=== PATIENT | female | born 1945 | race Caucasian/White ===

== ENCOUNTER 2024-02-07 10:11 | Inpatient (IN) | payer MEDICARE, BC, SELFPAY ==
[2024-02-07] VITALS (14 sets, daily range): BP systolic 117–149; BP diastolic 59–86; PULSE 76–96; TEMP 36.7–36.9; O2SAT 95–100; BMI 36.6; BMI 39.8
--- NOTE | 2024-02-07 11:11 | XR_ITS ---
The [address] [address] Patient Name: SALVADOR CHERY MRN: [id number] date: 1945 Sex: F Assigned Patient Location: ER Current Patient Location: ER Accession/Order Number: [id number] Exam Date: 02/07/2024 12:30 Report Date: 02/07/2024 12:48 At the request of: STEVEN CRANE Procedure: XR chest 1V EXAMINATION: XR chest 1V HISTORY: leg swelling COMPARISON: No relevant comparison available. FINDINGS: LUNGS: No significant pulmonary parenchymal abnormalities. VASCULATURE: No increased pulmonary vasculature. PLEURA: No pneumothorax, effusion, or pleural thickening. CARDIAC: No cardiomegaly or cardiac silhouette abnormality. MEDIASTINUM: No visible mass or adenopathy. BONES: No appreciable fracture. Degenerative changes of the shoulders bilaterally. OTHER: Negative. XR/XR chest 1V IMPRESSION: 1. No acute cardiopulmonary process. Electronically authenticated by: MELECIO ANDERSON Date: 02/07/2024 12:48
--- NOTE | 2024-02-07 11:14 | ECG_ITS ---
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
--- NOTE | 2024-02-07 11:15 | ED_ITS ---
HPI HPI - General Adult General Chief complaint: Weakness Stated complaint: BILATERAL LEG PAIN Time Seen by Provider: 02/07/24 10:43 Source: patient Mode of arrival: ambulance Limitations: no limitations History of Present Illness HPI narrative: Patient is a 78-year-old female who is presenting to the ER today with chief complaint of leg swelling. Patient came in by EMS. Patient lives at home with family. Patient PCP is Dr. Marmolejo. Patient stopped taking all of her medications approximately 6 months ago. Patient states for the past week she has been having more swelling to bilateral lower extremities and redness. Patient states she has not seen Dr. Marmolejo in over 1 to 2 years. Patient stated that in 6 months ago, she stopped taking her home medications and stated that she was going through natural homeopathic remedies at home. Patient is diabetic. Patient states that she had her sciatic nerve cuts and a right hip surgery. Patient states for the last several days she has been having more difficulty using her left leg secondary to pain and swelling. No strokelike signs or symptoms. She has no headache. No slurred speech. No chest pain or shortness of breath. No abdominal pain. Patient is placing some type of cornstarch underneath her bilateral breasts to help with redness and possible yeast infection. Patient has chronic redness and swelling to bilateral lower extremities. Patient has no other concerns at this time. No bowel or bladder changes. Patient has history of diabetes and gout. All systems are negative except as noted/marked. All systems reviewed and otherwise negative. Nurses note and vital signs reviewed and patient is not hypoxic. General: The patient appears well and in no apparent distress. Patient is resting comfortably on cart. Patient is not toxic, lethargic, or listless Skin: Warm, dry, no pallor noted. There is no petechiae, purpura. Patient has scaling of her lower extremities, diffuse redness to bilateral lower extremities, right greater than left. Patient also has redness to the dorsal aspect of the right foot. Patient does not have circumferential redness to the bilateral lower extremities. Patient has dermatitis and some scaling to bilateral lower extremities. Patient has multiple open sores to the bilateral lower extremities, bilateral lower extremity cellulitis, right greater than left. Patient has 2-3+ pitting edema to bilateral extremities. Head: Normocephalic, atraumatic Eye: Normal conjunctiva, no drainage, EOMI. PERRL Ears, Nose, Mouth, and Throat: oral mucosa is moist. Nares patent. Mouth without vesicles. Cardiovascular: Regular Rate and Rhythm, no murmur, gallop, rub Respiratory: Patient is in no distress, no accessory muscle use, lungs are clear to auscultation, no wheezing, rales or rhonchi Back: non-tender, no CVA tenderness bilaterally to percussion. No CT LS midline pain no tenderness to palpation to bilateral frontal and maxillary sinus.. GI: Obese, no tenderness to palpation, no masses appreciated. No rebound, guarding, or rigidity noted. No distention Musculoskeletal: Patient has full range of motion of all of the extremities, no motor, sensory, or focal neurological deficits Neurological: A&O x4, normal speech Psychiatric: Cooperative Related Data Allergies Allergy/AdvReac Type Severity Reaction Status Date / Time codeine AdvReac Mild Hives Verified 02/07/24 10:18 gabapentin AdvReac Mild confusion Verified 02/07/24 10:18 iodine AdvReac Mild Hives Verified 02/07/24 10:18 pregabalin AdvReac Mild confusion Verified 02/07/24 10:18 Opioid HPI Opioid Management Most Recent Opioid Data: Last Pain Scale 8 02/07/24 10:26 02/07/24 PFSH PFS Medical History (Updated 02/07/24 @ 14:23 by Cesar Vail MD) Hypertension ?I10 - Essential (primary) hypertension (ICD-10) Gout ?M10.9 - Gout, unspecified (ICD-10) Diabetes ?E11.9 - Type 2 diabetes mellitus without complications (ICD-10) Surgical History (Updated 02/07/24 @ 11:31 by Dawna Hansen RN) S/P hip replacement ?Z96.649 - Presence of unspecified artificial hip joint (ICD-10) Social History Little interest or pleasure in doing things: not at all Feeling down, depressed, or hopeless: not at all Exam Constitutional Vital Signs, click to edit/add: Last Vital Signs Temp 98.5 F 02/07/24 10:14 Pulse 78 02/07/24 10:30 Resp 19 02/07/24 10:40 BP 123/59 02/07/24 11:00 Pulse Ox 100 02/07/24 11:30 O2 Del Method Room Air 02/07/24 10:26 Course Vital Signs Vital signs: Vital Signs Temperature 98.5 F 02/07/24 10:14 Pulse Rate 76 02/07/24 10:14 Respiratory Rate 18 02/07/24 10:14 Blood Pressure 149/86 H 02/07/24 10:14 Pulse Oximetry 100 02/07/24 10:14 Oxygen Delivery Method Room Air 02/07/24 10:14 Temperature 98.5 F 02/07/24 10:14 Pulse Rate 78 02/07/24 10:30 Respiratory Rate 19 02/07/24 10:40 Blood Pressure 123/59 02/07/24 11:00 Pulse Oximetry 100 02/07/24 11:30 Oxygen Delivery Method Room Air 02/07/24 10:26 Medical Decision Making MDM Narrative Medical decision making narrative: Patient was started on Zosyn for lower extremities. Patient also had a wound care consult. Wound care came to the ER and placed Xeroform to bilateral lower extremities. Patient has bilateral lower extremity edema, cellulitis. Patient is having pain in the lower extremity. Patient has equal bilateral lower extremity swelling, no unilateral swelling, no signs of acute DVT. Patient does not have elevated white blood cell count. Patient does have slight elevation of BUN and creatinine, EKG and troponin are negative. Wound care team placed Xeroform to bilateral extremities and also pillowcases in between her legs and adipose folds to help with dry mechanism. Patient also has moisture irritation dermatitis to her lower buttocks, but no obvious stage I or stage II decubitus ulcers per wound care nurse. Patient also is recommending to use the nystatin powder to areas of fungal infection on the inpatient floor. Case was discussed with Dr. FERRARO, patient will be admitted for further evaluation, diuresis, IV antibiotics. Please see the wound care evaluation and consultation, that was very helpful. Lab Data Labs: Lab Results 02/07/24 02/07/24 Range/Units 10:58 11:32 WBC 9.6 (4.0-11.0) 10^3/uL RBC 3.90 L (4.20-5.40) 10^6/uL Hgb 11.6 L (12.0-16.0) g/dL Hct 36.6 (36.0-48.0) % MCV 93.8 (81.0-99.0) fL MCH 29.7 (26.7-34.0) pg MCHC 31.7 (29.9-35.2) g/dL RDW 12.6 (11.0-15.0) % Plt Count 325 (150-450) 10^3/uL MPV 11.0 (9.5-13.5) fL Neut % (Auto) 72.9 (43.0-75.0) % Lymph % (Auto) 15.6 L (20.5-60.0) % [place] % (Auto) 7.3 (1.7-12.0) % Eos % (Auto) 3.1 (0.9-7.0) % Baso % (Auto) 0.6 (0.2-2.0) % Neut # (Auto) 7.0 H (1.4-6.5) 10^3/uL Lymph # (Auto) 1.5 (1.2-3.8) 10^3/uL [place] # (Auto) 0.7 (0.3-0.8) 10^3/uL Eos # (Auto) 0.3 (0.0-0.7) 10^3/uL Baso # (Auto) 0.1 (0.0-0.1) 10^3/uL Abs Immat Gran (auto) 0.05 H (0.00-0.03) 10^3/uL Imm/Tot Granulo (auto) 0.5 (0.0-0.5) % PT 10.4 (9.0-11.6) sec INR 0.98 VBG pH 7.402 (7.330-7.430) VBG pCO2 40.9 (40.0-52.0) mmHg Sodium 144 (136-145) mmol/L Potassium 4.3 (3.5-5.1) mmol/L Chloride 107 (98-107) mmol/L Carbon Dioxide 25.2 (21.0-32.0) mmol/L Anion Gap 16.1 BUN 23.0 H (7.0-18.0) mg/dL Creatinine 1.36 H (0.55-1.02) mg/dL Est GFR ( Amer) 46 L (>=60 mL/min/1.73m^2) Est GFR (Non-Af Amer) 38 L (>=60 mL/min/1.73m^2) BUN/Creatinine Ratio 16.9 Glucose 141 H (74-106) mg/dL Lactate 1.0 (0.4-2.0) mmol/L Calcium 9.5 (8.5-10.1) mg/dL Magnesium 1.6 L (1.8-2.4) mg/dL Total Bilirubin 0.5 (0.2-1.0) mg/dL AST 16 (15-37) U/L ALT 15 (14-59) U/L Alkaline Phosphatase 108 (46-116) U/L NT-Pro-B Natriuret Pep 509.0 (<=1800.0) pg/mL Total Protein 6.8 (6.4-8.2) g/dL Albumin 3.0 L (3.4-5.0) g/dL Globulin 3.8 g/dL Albumin/Globulin Ratio 0.8 Urine Color Lt. yellow (YELLOW) Urine Clarity Clear (CLEAR) Urine pH 6.0 (5.0-9.0) Ur Specific [place] 1.020 (1.005-1.025) Urine Protein Trace (NEG/TRACE) mg/dL Urine Glucose (UA) Negative (NEGATIVE) mg/dL Urine Ketones Negative (NEGATIVE) mg/dL Urine Occult Blood Small A (NEGATIVE) Urine Nitrite Negative (NEGATIVE) Urine Bilirubin Negative (NEGATIVE) Urine Urobilinogen 0.2 (0.2-1.0) EU/dL Ur Leukocyte Esterase Moderate A (NEGATIVE) Urine RBC 2-5 A (0-2) #/HPF Urine WBC 5-10 A (NONE SEEN) #/HPF Ur Squamous Epith Cells Many A (NONE/RARE) #/LPF Urine Crystals None seen (None Seen) #/HPF Urine Bacteria Large A (NONE SEEN) #/HPF Urine Casts None seen (NONE SEEN) #/LPF Urine Mucus None seen (NONE SEEN) Ur Culture Indicated? Yes ECG Data Attestation: I personally reviewed and interpreted this ECG as follows: (EKG interpretation. Artifact noted. Baseline normal sinus rhythm at 77 beats a minute. QTc of 439. EKGs reading first-degree AV block with GA interval 214) Discharge Plan Discharge Chief Complaint: Weakness Clinical Impression: Bilateral edema of lower extremity, Cellulitis of right anterior lower leg, Medically noncompliant, Encounter for wound care Patient Disposition: Admitted As Inpatient Time of Disposition Decision: 14:23 Condition: Fair
[2024-02-07 11:23] LABS: Bilirubin Urine NEGATIVE (NEGATIVE); Blood Urine SMALL (NEGATIVE); Clarity Urine CLEAR (CLEAR); Color Urine LT. YELLOW (YELLOW); Glucose Urine UA NEGATIVE (NEGATIVE); Ketones Urine NEGATIVE (NEGATIVE); Leukocyte Esterase Urine MODERATE (NEGATIVE); Nitrite Urine NEGATIVE (NEGATIVE); Protein Urine TRACE mg/dL (NEG/TRACE); Urine Microscopic Indicated YES; Urobilinogen Urine 0.2 EU/dL (0.2-1.0)
--- NOTE | 2024-02-07 11:29 | CT_ITS ---
The [address] [address] Patient Name: SALVADOR CHERY MRN: [id number] date: 1945 Sex: F Assigned Patient Location: ER Current Patient Location: ER Accession/Order Number: [id number] Exam Date: 02/07/2024 12:30 Report Date: 02/07/2024 12:55 At the request of: STEVEN CRANE Procedure: CT head/brain wo con EXAM: CT head/brain wo con HISTORY: left leg weakness COMPARISON: None. TECHNIQUE: Multiple thin computed tomograms of the head were obtained, with sagittal and coronal reconstructions. Radiation reduction technique and algorithms were utilized during the study. FINDINGS: The ventricles are near the upper limits of normal in size, the lateral ventricles are symmetric and the third ventricles in the midline. The sylvian fissures and cortical sulci are borderline prominent in size. There is no evidence of an intracranial hemorrhage, mass lesion or apparent acute infarct. A few punctate dystrophic calcifications are seen in the basal ganglia bilaterally, which are not felt to be significant. No focal abnormality is readily identified in the deep white matter. Calcifications are seen in the falx. Frontal hyperostosis is noted. The cerebellum and visualized brainstem are intact. The visualized paranasal sinuses are clear. The middle ears are aerated. The soft tissues are seen in the external auditory canal on the right, presumably cerumen. The mastoid sinuses are underdeveloped and essentially clear. There is no evidence of an acute skull fracture. CT/CT head/brain wo con IMPRESSION: There is no evidence of an intracranial hemorrhage, mass lesion or apparent acute infarct. Early diffuse atrophy is noted. The visualized paranasal sinuses are clear. There is no apparent acute skull fracture. Electronically authenticated by: PAYTON CROW Date: 02/07/2024 12:55
[2024-02-07 11:40] LABS: Bacteria Urine LARGE #/HPF (NONE SEEN)
[2024-02-07 11:41] LABS: Mucus Urine NONE SEEN (NONE SEEN); Squamous Epithelial Cell Urine MANY #/LPF (NONE/RARE)
[2024-02-07 11:42] LABS: Cast Seen? NONE SEEN #/LPF (NONE SEEN); Crystals Seen? None Seen #/HPF (None Seen); Urine Culture Indicated YES
[2024-02-07 11:51] LABS: Basophils Absolute Auto 0.1 10^3/uL (0.0-0.1); Basophils Percent Auto 0.6 % (0.2-2.0); Eosinophils Absolute Auto 0.3 10^3/uL (0.0-0.7); Eosinophils Percent Auto 3.1 % (0.9-7.0); Hematocrit 36.6 % (36.0-48.0); Hemoglobin 11.6 g/dL (12.0-16.0); Immature Granulocytes Abs Auto 0.05 10^3/uL (0.00-0.03); Immature Granulocytes Pct Auto 0.5 % (0.0-0.5); Lymphocytes Absolute Auto 1.5 10^3/uL (1.2-3.8); Lymphocytes Percent Auto 15.6 % (20.5-60.0); Mean Corpuscular HGB Conc 31.7 g/dL (29.9-35.2); Mean Corpuscular Hemoglobin 29.7 pg (26.7-34.0); Mean Corpuscular Volume 93.8 fL (81.0-99.0); Monocytes Absolute Auto 0.7 10^3/uL (0.3-0.8); Monocytes Percent Auto 7.3 % (1.7-12.0); Neutrophils Percent Auto 72.9 % (43.0-75.0); Platelet Count 325 10^3/uL (150-450); Red Cell Distribution Width 12.6 % (11.0-15.0); White Blood Count 9.6 10^3/uL (4.0-11.0)
[2024-02-07 11:52] LABS: PCO2 VBG 40.9 mmHg (40.0-52.0); pH VBG 7.402 (7.330-7.430)
[2024-02-07 12:13] LABS: Alanine Aminotransferase 15 U/L (14-59); Albumin Globulin Ratio 0.8; Alkaline Phosphatase 108 U/L (46-116); Anion Gap 16.1; Aspartate Amino Transferase 16 U/L (15-37); BUN Creatinine Ratio 16.9; Bilirubin Total 0.5 mg/dL (0.2-1.0); Calcium 9.5 mg/dL (8.5-10.1); Carbon Dioxide 25.2 mmol/L (21.0-32.0); Chloride 107 mmol/L (98-107); Estimated GFR (African America 46 (>=60 mL/min/1.73m^2); Estimated GFR (Non-African Ame 38 (>=60 mL/min/1.73m^2); Globulin 3.8 g/dL; Glucose 141 mg/dL (74-106); Magnesium 1.6 mg/dL (1.8-2.4); Potassium 4.3 mmol/L (3.5-5.1); Sodium 144 mmol/L (136-145); Total Protein 6.8 g/dL (6.4-8.2)
[2024-02-07] MEDS: PIPERACILLIN SODIUM/TAZOBACTAM 3.375 GM in 0.9 % SODIUM CHLORIDE 50 ML IV ×2 (12:23→22:22)
[2024-02-07 12:32] LABS: INR 0.98; Prothrombin Time 10.4 sec (9.0-11.6)
--- NOTE | 2024-02-07 12:48 | W.PM.WC ---
Wound Consult Note Assessment and Plan (1) Cellulitis of right anterior lower leg: (2) Bilateral edema of lower extremity: Plan Consult: Bilateral lower extremities, bilateral groin breakdown, bilateral buttocks skin breakdown Called by ER staff per Dr. Vail's request to see patient for skin assessment. Patient states she does not have history of wounds but has noticed her legs swelling more recently and draining. She reports she does put an organic oil on her legs but she was unsure which type. Upon inspect patient has thick dry scaly skin with moisture underneath. She also has a large amount of hairs intertwined with the scaly skin deposits. Legs were scrubbed with soap and water and a cotton tipped applicator was used to assist with removing loose skin. Patient tolerated well. She has superficial open skin on her right anterior camargo to her dorsal foot and toes. Area covered with 1 layer of xeroform and secure with kerlix. Patient's heel is padded with 4x4 gauze as her heels are sore and boggy. They do lilia, however they are slow to lilia. Patient's left camargo is also superficially open and wrapped with 1 layer of xeroform and heel padded as well due to her red heel. Patient tolerated well. Upon inspection of patient's bilateral groin/abdominal folds, she has bleeding skin and moisture noted. Pillowcase were applied to her creases bilaterally. Upon inspection of her buttocks area, patient has noted moisture associated dermatitis and incontinence associated dermatitis as well as shearing/friction noted. Spoke with bedside nurse and Dr. Vail regarding recommendations: Xeroform daily to bilateral lower legs daily. Antifungal powder and pillowcases to bilateral abdominal/groin twice daily Barrier cream/triad to bilateral buttocks daily Please call [phone] for any questions or concerns. Luis Juarez RN, CWON
--- NOTE | 2024-02-07 17:25 | P.HP_ITS ---
HPI H&P: HPI History of Present Illness Chief complaint: BILATERAL LEG PAIN, LOWER EXTREMITY EDEMA, CELLULI Narrative: Approximately 6 months ago patient stopped taking all of her medications, patient is a diabetic, she presented to the emergency room with increasing swelling in her lower extremities and increasing pain. In ER found a bilateral lower extremity cellulitis. Wound consultation was completed. financial services rep consult also completed When I saw patient up in the medical surgical floor she is very talkative, not sure how accurate her history is, not seen a doctor in over 1 to 2 years, stopped all her medications 6 months ago, as noted above just having increasing pain and swelling in her lower extremities. Denies fever chills or chest pain or shortness of breath Opioid HPI Opioid Management Most Recent Pain and Opioid Data: Last Pain Scale 5 02/07/24 18:00 02/07/24 Last Pain Assessment 02/07/24 20:00 Last ORT Total Score 0 02/07/24 15:11 02/07/24 Last ORT Risk Category Low Risk 02/07/24 15:11 02/07/24 Review of Systems ROS Status of ROS 10 or more systems reviewed and unremark able except as noted in history and below [facility] Medical History (Updated 02/07/24 @ 14:23 by Cesar Vail MD) Hypertension ?I10 - Essential (primary) hypertension (ICD-10) Gout ?M10.9 - Gout, unspecified (ICD-10) Diabetes ?E11.9 - Type 2 diabetes mellitus without complications (ICD-10) Surgical History (Updated 02/07/24 @ 11:31 by Dawna Hansen RN) S/P hip replacement ?Z96.649 - Presence of unspecified artificial hip joint (ICD-10) Social History Highest level of school completed/degree received: high school graduate Little interest or pleasure in doing things: not at all Feeling down, depressed, or hopeless: not at all Meds Home Medications and Allergies Allergies Allergy/AdvReac Type Severity Reaction Status Date / Time codeine AdvReac Mild Hives Verified 02/07/24 10:18 gabapentin AdvReac Mild confusion Verified 02/07/24 10:18 iodine AdvReac Mild Hives Verified 02/07/24 10:18 pregabalin AdvReac Mild confusion Verified 02/07/24 10:18 Exam Constitutional Vital Signs, click to edit/add: Last Vital Signs Temp 98.3 F 02/07/24 15:11 Pulse 85 02/07/24 15:11 Resp 16 02/07/24 15:11 BP 144/69 H 02/07/24 15:11 Pulse Ox 99 02/07/24 15:11 O2 Del Method Room Air 02/07/24 15:11 Documenting provider has reviewed patient's vital signs: yes Common normals: no apparent distress Chest Common normals: inspection of chest normal and palpation of chest normal Respiratory Common normals: normal respiratory effort and no retractions Cardio Common normals: regular rate and regular rhythm GI Common normals: Normal to inspection, nondistended, normoactive bowel sounds present and soft to palpation Extremity Common normals: abnormal to inspection (3+ swelling of unique low ext, erythema bilateral lower ext, dressing in place) Results Labs Labs: Short CBC 02/07/24 Range/Units 11:32 WBC 9.6 (4.0-11.0) 10^3/uL Hgb 11.6 L (12.0-16.0) g/dL Hct 36.6 (36.0-48.0) % Plt Count 325 (150-450) 10^3/uL BMP 02/07/24 11:32 Sodium 144 Potassium 4.3 Chloride 107 Carbon Dioxide 25.2 BUN 23.0 H Creatinine 1.36 H Glucose 141 H Calcium 9.5 Liver Function 02/07/24 Range/Units 11:32 Total Bilirubin 0.5 (0.2-1.0) mg/dL AST 16 (15-37) U/L ALT 15 (14-59) U/L Alkaline Phosphatase 108 (46-116) U/L Albumin 3.0 L (3.4-5.0) g/dL Urine 02/07/24 Range/Units 10:58 Urine Color Lt. yellow (YELLOW) Urine Clarity Clear (CLEAR) Urine pH 6.0 (5.0-9.0) Ur Specific [place] 1.020 (1.005-1.025) Urine Protein Trace (NEG/TRACE) mg/dL Urine Glucose (UA) Negative (NEGATIVE) mg/dL ABG ABG results: 02/07/24 11:32 VBG pH 7.402 VBG pCO2 40.9 Assessment and Plan Assessment and Plan (1) Encounter for wound care: (2) Medically noncompliant: (3) Cellulitis of right anterior lower leg: (4) Bilateral edema of lower extremity: (5) Hypertension: (6) Diabetes: (7) Gout: Plan Admission findings: Bilateral lower extremity swelling he is secondary to bilateral lower extremity cellulitis complicated by diabetes mellitus. Patient very noncompliant. Does not appear to be taking care of herself well. Acute bilateral lower extremity cellulitis-check an ultrasound of bilateral lower extremities, IV antibiotics, patient did have wound consultation completed in the emergency room. Blood cultures pending. Diabetes mellitus-insulin sliding scale Hypomagnesemia-supplement Yeast dermatitis-nystatin powder Hypertension-monitor, may need oral medications. Mild protein calorie malnutrition-diet management, increase protein intake to assist with healing of wounds Iron deficiency anemia-monitor daily Chronic kidney disease 2 likely-monitor daily. Uncertain baseline. Acute UTI-culture pending Admission status: Patient with severe cellulitis of bilateral lower extremities as well as poor general health care secondary to patient's noncompliance. Medically necessary treatment will span 2 midnights. Inpatient status. Urinary Catheter Management Urinary Catheter Management Pure Wick: Cath placed during this visit: yes Urethral indwelling: No Insertion date: 02/07/24 Insertion time: 16:42
[2024-02-07 17:52] LABS: Erythrocyte Sedimentation Rate 37 mm/hr (<=30)
[2024-02-07 18:10] LABS: Thyroid Stimulating Hormone 3.338 uIU/mL (0.358-3.740)
[2024-02-07 22:07] LABS: Glucometer 208 mg/dL (74-106)
[2024-02-07] MEDS: PANTOPRAZOLE SODIUM 40 MG VIAL IV (22:20)
[2024-02-07] MEDS: MAGNESIUM OXIDE 400 MG TABLET PO (22:20)
[2024-02-07] MEDS: NYSTATIN 15 GM POWDER 1 APPLIC TOPICAL (22:20)
[2024-02-07] MEDS: INSULIN ASPART 300 UNIT/3 ML PEN SUBQ (22:21)
[2024-02-07] MEDS: ENSURE HP 237 ML LIQUID PO (22:23)
[2024-02-07] MEDS: CIPROFLOXACIN IN 5 % DEXTROSE 400 MG/200 ML PREMIX 200 MG IV (22:23)
[2024-02-07] MEDS: 0.9 % SODIUM CHLORIDE 1,000 ML 75 ML IV (22:24)
[2024-02-07] MEDS: PROSTAT 15 GM PROTEIN/100 CAL 30 ML LIQUID PACKET PO (22:24)
[2024-02-08] VITALS (10 sets, daily range): BP systolic 109–130; BP diastolic 52–76; PULSE 68–92; TEMP 36.2–36.5; O2SAT 92–98
--- NOTE | 2024-02-08 06:00 | US_ITS ---
The [address] [address] Patient Name: SALVADOR CHERY MRN: [id number] date: 1945 Sex: F Assigned Patient Location: [place] Current Patient Location: [place] Accession/Order Number: [id number] Exam Date: 02/08/2024 12:55 Report Date: 02/08/2024 14:19 At the request of: LEIDY FERRARO Procedure: US venous doppler LE BI EXAMINATION: US venous doppler LE BI HISTORY: bilateral lower ext edema COMPARISON: No relevant comparison available. FINDINGS: REGION: Bilateral extremities THROMBI: None. COMPRESSIBILITY: Normal compressibility. FLOW: Normal waveform and antegrade flow between 5 and 20 cm/s. OTHER: Several slightly prominent lymph nodes within right groin, likely reactive. Fluid collection within left popliteal fossa consistent with a Landon's cyst. US/US venous doppler LE BI IMPRESSION: 1. No deep vein thrombus within the right or left lower extremity. Electronically authenticated by: MELECIO ANDERSON Date: 02/08/2024 14:19
[2024-02-08 06:10] LABS: Basophils Percent Auto 0.4 % (0.2-2.0); Eosinophils Percent Auto 0.1 % (0.9-7.0); Hematocrit 31.8 % (36.0-48.0); Hemoglobin 10.1 g/dL (12.0-16.0); Immature Granulocytes Abs Auto 0.02 10^3/uL (0.00-0.03); Immature Granulocytes Pct Auto 0.3 % (0.0-0.5); Lymphocytes Absolute Auto 1.6 10^3/uL (1.2-3.8); Mean Corpuscular HGB Conc 31.8 g/dL (29.9-35.2); Mean Corpuscular Hemoglobin 29.8 pg (26.7-34.0); Mean Corpuscular Volume 93.8 fL (81.0-99.0); Mean Platelet Volume 11.1 fL (9.5-13.5); Monocytes Absolute Auto 0.8 10^3/uL (0.3-0.8); Monocytes Percent Auto 10.6 % (1.7-12.0); Neutrophils Absolute Auto 5.2 10^3/uL (1.4-6.5); Neutrophils Percent Auto 67.6 % (43.0-75.0); Platelet Count 300 10^3/uL (150-450); Red Blood Count 3.39 10^6/uL (4.20-5.40); Red Cell Distribution Width 12.5 % (11.0-15.0); White Blood Count 7.7 10^3/uL (4.0-11.0)
[2024-02-08 06:19] LABS: Erythrocyte Sedimentation Rate 34 mm/hr (<=30)
[2024-02-08] MEDS: PIPERACILLIN SODIUM/TAZOBACTAM 3.375 GM in 0.9 % SODIUM CHLORIDE 50 ML IV ×2 (06:24→17:08)
[2024-02-08 06:27] LABS: Alanine Aminotransferase 12 U/L (14-59); Albumin Globulin Ratio 0.8; Albumin Level 2.5 g/dL (3.4-5.0); Alkaline Phosphatase 92 U/L (46-116); Anion Gap 13.2; Aspartate Amino Transferase 16 U/L (15-37); BUN Creatinine Ratio 17.4; Bilirubin Total 0.5 mg/dL (0.2-1.0); Calcium 8.7 mg/dL (8.5-10.1); Carbon Dioxide 24.8 mmol/L (21.0-32.0); Chloride 108 mmol/L (98-107); Estimated GFR (African America 45 (>=60 mL/min/1.73m^2); Estimated GFR (Non-African Ame 37 (>=60 mL/min/1.73m^2); Globulin 3.3 g/dL; Glucose 110 mg/dL (74-106); Sodium 142 mmol/L (136-145); Total Protein 5.8 g/dL (6.4-8.2)
--- NOTE | 2024-02-08 08:49 | P.PN_ITS ---
Progress Note: Subjective Subjective Interval history: Patient reports some pain in her lower extremities this morning and she did not sleep well overnight. But she denies any fevers or chills. Appetite has been good. Exam Narrative Exam Narrative: General: Patient is alert, and oriented to person, place and time with normal affect, proper hygiene Skin: bilateral lower ext are wrapped with kerlix. Head: atraumatic, acephalic Eyes: PERRLA, no nystagmus present, conjunctiva clear, no scleral icterus Ears: normal gross auditory acuity Heart: Normal rate and rhythm, no murmurs/rubs/gallops Lungs: no audible wheezes, crackles and normal breath sounds all lung fowler Abdomen: Normal audible bowel sounds, no distension, No palpable masses, no organomegaly, no rebound/guarding/ or rigidity Musculoskeletal: mild swelling bilateral lower extremities Neuro: CN II-X grossly intact Constitutional Vital Signs, click to edit/add: Last Vital Signs Temp 97.6 F 02/08/24 08:24 Pulse 74 02/08/24 08:24 Resp 18 02/08/24 08:27 BP 114/76 02/08/24 08:24 Pulse Ox 92 L 02/08/24 08:24 O2 Del Method Room Air 02/08/24 08:24 Progress Note: Objective Labs Labs: Short CBC 02/07/24 02/08/24 Range/Units 11:32 05:49 WBC 9.6 7.7 (4.0-11.0) 10^3/uL Hgb 11.6 L 10.1 L (12.0-16.0) g/dL Hct 36.6 31.8 L (36.0-48.0) % Plt Count 325 300 (150-450) 10^3/uL BMP 02/07/24 02/08/24 11:32 05:49 Sodium 144 142 Potassium 4.3 4.0 Chloride 107 108 H Carbon Dioxide 25.2 24.8 BUN 23.0 H 24.0 H Creatinine 1.36 H 1.38 H Glucose 141 H 110 H Calcium 9.5 8.7 Liver Function 02/07/24 02/08/24 Range/Units 11:32 05:49 Total Bilirubin 0.5 0.5 (0.2-1.0) mg/dL AST 16 16 (15-37) U/L ALT 15 12 L (14-59) U/L Alkaline Phosphatase 108 92 (46-116) U/L Albumin 3.0 L 2.5 L (3.4-5.0) g/dL Urine 02/07/24 Range/Units 10:58 Urine Color Lt. yellow (YELLOW) Urine Clarity Clear (CLEAR) Urine pH 6.0 (5.0-9.0) Ur Specific [place] 1.020 (1.005-1.025) Urine Protein Trace (NEG/TRACE) mg/dL Urine Glucose (UA) Negative (NEGATIVE) mg/dL Progress Note: A&P Assessment and Plan (1) Cellulitis of right anterior lower leg: Assessment and Plan: continue with wound care recommendations, continue the Zosyn and vancomycin, cultures pending. WBC's 7.7, Venous Dopplers pending (2) Medically noncompliant: Assessment and Plan: Patient recently, 6 months ago stopped all medications (3) Hypertension: Assessment and Plan: monitor, was taking lisinopril, use prn hydralazine Qualifiers: Hypertension type: secondary to endocrine disorders Qualified Code(s): I15.2 - Hypertension secondary to endocrine disorders (4) Diabetes: Assessment and Plan: complicates her cellulitis, will check ha1c, SSI with accuchecks pRN Qualifiers: Diabetes mellitus type: type 2 Diabetes mellitus jail insulin use: without buttermilk drier operator use Diabetes mellitus complication status: with skin complications Diabetes mellitus complication detail: with dermatitis Qualified Code(s): E11.620 - Type 2 diabetes mellitus with diabetic dermatitis (5) Gout: Assessment and Plan: no acute flares Qualifiers: Gout site: unspecified site Gout etiology: unspecified cause Chronicity: chronic Plan Patient is a full code continue lovenox for DVT prophylaxis patient will require 2-3 days of inpatient medical necessary care. Urinary Catheter Management Urinary Catheter Management Pure Wick: Cath placed during this visit: yes Urethral indwelling: No Insertion date: 02/07/24 Insertion time: 16:42
[2024-02-08 09:05] LABS: Estimated Average Glucose 192 mg/dL; Glycohemoglobin A1C 8.3 % (4.5-6.2)
[2024-02-08] MEDS: ENSURE HP 237 ML LIQUID PO ×2 (09:57→21:58)
[2024-02-08] MEDS: PROSTAT 15 GM PROTEIN/100 CAL 30 ML LIQUID PACKET PO ×2 (09:58→21:58)
[2024-02-08] MEDS: MAGNESIUM OXIDE 400 MG TABLET PO ×2 (09:58→21:58)
[2024-02-08] MEDS: PRIMIDONE 50 MG TABLET PO (09:58)
[2024-02-08] MEDS: ENOXAPARIN SODIUM 30 MG/0.3 ML SYRINGE SUBQ (09:58)
[2024-02-08] MEDS: NYSTATIN 15 GM POWDER 1 APPLIC TOPICAL ×2 (09:59→21:57)
[2024-02-08 12:52] LABS: Glucometer 244 mg/dL (74-106)
[2024-02-08 16:44] LABS: Glucometer 165 mg/dL (74-106)
[2024-02-08] MEDS: ACETAMINOPHEN 500 MG TABLET 1000 MG PO (16:46)
[2024-02-08] MEDS: CIPROFLOXACIN IN 5 % DEXTROSE 400 MG/200 ML PREMIX 200 MG IV (21:57)
[2024-02-08] MEDS: PANTOPRAZOLE SODIUM 40 MG VIAL IV (21:57)
[2024-02-08] MEDS: 0.9 % SODIUM CHLORIDE 1,000 ML 75 ML IV (21:58)
[2024-02-08] MEDS: INSULIN ASPART 300 UNIT/3 ML PEN SUBQ (22:08)
[2024-02-08 22:10] LABS: Glucometer 280 mg/dL (74-106)
[2024-02-09] VITALS (9 sets, daily range): BP systolic 103–126; BP diastolic 62–80; PULSE 71–83; TEMP 36.4–36.6; O2SAT 94–98
[2024-02-09] MEDS: PIPERACILLIN SODIUM/TAZOBACTAM 3.375 GM in 0.9 % SODIUM CHLORIDE 50 ML IV (06:14)
[2024-02-09 06:24] LABS: Basophils Absolute Auto 0.1 10^3/uL (0.0-0.1); Basophils Percent Auto 0.7 % (0.2-2.0); Eosinophils Absolute Auto 0.5 10^3/uL (0.0-0.7); Eosinophils Percent Auto 7.1 % (0.9-7.0); Hematocrit 33.4 % (36.0-48.0); Hemoglobin 10.4 g/dL (12.0-16.0); Immature Granulocytes Abs Auto 0.02 10^3/uL (0.00-0.03); Immature Granulocytes Pct Auto 0.3 % (0.0-0.5); Lymphocytes Absolute Auto 1.4 10^3/uL (1.2-3.8); Lymphocytes Percent Auto 19.8 % (20.5-60.0); Mean Corpuscular HGB Conc 31.1 g/dL (29.9-35.2); Mean Corpuscular Hemoglobin 29.4 pg (26.7-34.0); Mean Corpuscular Volume 94.4 fL (81.0-99.0); Mean Platelet Volume 11.2 fL (9.5-13.5); Monocytes Absolute Auto 0.8 10^3/uL (0.3-0.8); Neutrophils Absolute Auto 4.3 10^3/uL (1.4-6.5); Neutrophils Percent Auto 61.1 % (43.0-75.0); Platelet Count 280 10^3/uL (150-450); Red Blood Count 3.54 10^6/uL (4.20-5.40); Red Cell Distribution Width 12.6 % (11.0-15.0); White Blood Count 7.1 10^3/uL (4.0-11.0)
[2024-02-09 06:43] LABS: Alanine Aminotransferase 18 U/L (14-59); Albumin Globulin Ratio 0.7; Albumin Level 2.5 g/dL (3.4-5.0); Alkaline Phosphatase 90 U/L (46-116); Anion Gap 15.7; Aspartate Amino Transferase 21 U/L (15-37); BUN Creatinine Ratio 17.9; Bilirubin Total 0.5 mg/dL (0.2-1.0); Calcium 8.2 mg/dL (8.5-10.1); Carbon Dioxide 22.5 mmol/L (21.0-32.0); Chloride 108 mmol/L (98-107); Estimated GFR (African America 44 (>=60 mL/min/1.73m^2); Estimated GFR (Non-African Ame 36 (>=60 mL/min/1.73m^2); Globulin 3.4 g/dL; Glucose 107 mg/dL (74-106); Potassium 4.2 mmol/L (3.5-5.1); Sodium 142 mmol/L (136-145); Total Protein 5.9 g/dL (6.4-8.2)
--- NOTE | 2024-02-09 08:12 | PM.PN ---
Progress Note: Subjective Subjective Interval history: Patient reports some pain in her lower extremities this morning. left > right. But she denies any fevers or chills. Appetite has been good. She is needing max assist with transfers. I discussed negative findings of venous Doppler. and elevated ha1c of 8.2. I also discussed switching her from IV to PO antibiotics today as labs are stable and she has remained afebrile. Exam Narrative Exam Narrative: General: Patient is alert, and oriented to person, place and time with normal affect, proper hygiene Skin: bother legs are covered with kerlix wraps Head: atraumatic, acephalic Eyes: PERRLA, no nystagmus present, conjunctiva clear, no scleral icterus Ears: normal gross auditory acuity Nose: symmetric, no discharge, no maxillary or frontal sinus tenderness Heart: Normal rate and rhythm, no murmurs/rubs/gallops Lungs: no audible wheezes, crackles and normal breath sounds all lung fowler Abdomen: Normal audible bowel sounds, no distension, No palpable masses, no organomegaly, no rebound/guarding/ or rigidity Musculoskeletal: +1 swelling bilateral lower extremities Neuro: CN II-X grossly intact, Constitutional Vital Signs, click to edit/add: Last Vital Signs Temp 97.8 F 02/09/24 00:00 Pulse 71 02/09/24 04:00 Resp 14 02/09/24 04:00 BP 106/62 02/09/24 04:00 Pulse Ox 95 02/09/24 05:39 O2 Del Method Room Air 02/09/24 05:39 Progress Note: Objective Labs Labs: Short CBC 02/09/24 Range/Units 06:06 WBC 7.1 (4.0-11.0) 10^3/uL Hgb 10.4 L (12.0-16.0) g/dL Hct 33.4 L (36.0-48.0) % Plt Count 280 (150-450) 10^3/uL BMP 02/09/24 06:06 Sodium 142 Potassium 4.2 Chloride 108 H Carbon Dioxide 22.5 BUN 25.0 H Creatinine 1.40 H Glucose 107 H Calcium 8.2 L Liver Function 02/09/24 Range/Units 06:06 Total Bilirubin 0.5 (0.2-1.0) mg/dL AST 21 (15-37) U/L ALT 18 (14-59) U/L Alkaline Phosphatase 90 (46-116) U/L Albumin 2.5 L (3.4-5.0) g/dL Progress Note: A&P Assessment and Plan (1) Cellulitis of right anterior lower leg: Assessment and Plan: stop cipro and zosyn. place on keflex. No positive cultures. Continue wound dressings per wound recs. (2) Hypertension: Assessment and Plan: BP has been stable. monitor. Qualifiers: Hypertension type: secondary to endocrine disorders Qualified Code(s): I15.2 - Hypertension secondary to endocrine disorders (3) Diabetes: Assessment and Plan: ha1c 8.2, continue SSI, will need placed back on oral hypoglycemics at discharge with renal dosage Qualifiers: Diabetes mellitus complication detail: with dermatitis Diabetes mellitus complication status: with skin complications Diabetes mellitus retirement insulin use: without equipment operator intermodal yard use Diabetes mellitus type: type 2 Qualified Code(s): E11.620 - Type 2 diabetes mellitus with diabetic dermatitis (4) Gout: Assessment and Plan: no acute flares. 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 (6) Weakness: Assessment and Plan: Generalized. work with pt/ot daily, most likely will need acute rehab. (7) Chronic kidney disease (CKD): Assessment and Plan: renally dose medications, most likely from diabetes. Qualifiers: Chronic kidney disease stage: stage 3 (moderate) Chronic kidney disease stage 3 subtype: stage 3b (GFR 30-44) Qualified Code(s): N18.32 - Chronic kidney disease, stage 3b (8) UTI (urinary tract infection): Assessment and Plan: stop cipro, awaiting urine culture, continue keflex Qualifiers: Hematuria presence: without hematuria Urinary tract infection type: acute cystitis Qualified Code(s): N30.00 - Acute cystitis without hematuria (9) Hypomagnesemia: Assessment and Plan: replace with oral supplement (10) Bilateral edema of lower extremity: Assessment and Plan: proBNP normal, from diabetic stasis with lipoedema component Plan Patient is a full code Lovenox for DVT prophylaxis Patient most likely will need acute rehab/senior living placement and would prefer something close to her home in [place] Urinary Catheter Management Urinary Catheter Management Pure Wick: Cath placed during this visit: yes Urethral indwelling: No Insertion date: 02/07/24 Insertion time: 16:42
[2024-02-09 08:26] LABS: Magnesium 1.5 mg/dL (1.8-2.4)
[2024-02-09] MEDS: ENOXAPARIN SODIUM 30 MG/0.3 ML SYRINGE SUBQ (09:35)
[2024-02-09] MEDS: CEPHALEXIN 500 MG CAPSULE PO ×2 (09:35→20:17)
[2024-02-09] MEDS: MAGNESIUM OXIDE 400 MG TABLET PO ×3 (09:35→20:17)
[2024-02-09] MEDS: PRIMIDONE 50 MG TABLET PO (09:36)
[2024-02-09] MEDS: NYSTATIN 15 GM POWDER 1 APPLIC TOPICAL ×2 (09:38→20:17)
[2024-02-09 11:45] LABS: Glucometer 263 mg/dL (74-106)
[2024-02-09] MEDS: INSULIN ASPART 300 UNIT/3 ML PEN SUBQ ×2 (12:30→21:00)
[2024-02-09] MEDS: ACETAMINOPHEN 500 MG TABLET 1000 MG PO (15:30)
[2024-02-09 17:10] LABS: Glucometer 137 mg/dL (74-106)
[2024-02-09 20:08] LABS: Glucometer 238 mg/dL (74-106)
[2024-02-09] MEDS: ENSURE HP 237 ML LIQUID PO (20:17)
[2024-02-09] MEDS: PROSTAT 15 GM PROTEIN/100 CAL 30 ML LIQUID PACKET PO (20:17)
[2024-02-10] VITALS: BP 111/69; PULSE 83; TEMP 36.6; O2SAT 95
[2024-02-10] MEDS: ACETAMINOPHEN 500 MG TABLET 1000 MG PO ×2 (00:13→05:07)
[2024-02-10 05:00] VITALS: BP 115/73; PULSE 58; TEMP 36.5; O2SAT 95
[2024-02-10] MEDS: MAGNESIUM OXIDE 400 MG TABLET PO (05:07)
[2024-02-10 05:55] LABS: Basophils Percent Auto 0.5 % (0.2-2.0); Hemoglobin 9.9 g/dL (12.0-16.0); Immature Granulocytes Abs Auto 0.01 10^3/uL (0.00-0.03); Immature Granulocytes Pct Auto 0.2 % (0.0-0.5); Lymphocytes Absolute Auto 1.1 10^3/uL (1.2-3.8); Lymphocytes Percent Auto 18.9 % (20.5-60.0); Mean Corpuscular HGB Conc 31.9 g/dL (29.9-35.2); Mean Corpuscular Hemoglobin 30.1 pg (26.7-34.0); Mean Corpuscular Volume 94.2 fL (81.0-99.0); Mean Platelet Volume 11.2 fL (9.5-13.5); Monocytes Absolute Auto 0.6 10^3/uL (0.3-0.8); Monocytes Percent Auto 10.6 % (1.7-12.0); Neutrophils Absolute Auto 3.9 10^3/uL (1.4-6.5); Neutrophils Percent Auto 69.8 % (43.0-75.0); Platelet Count 271 10^3/uL (150-450); Red Blood Count 3.29 10^6/uL (4.20-5.40); Red Cell Distribution Width 12.4 % (11.0-15.0); White Blood Count 5.6 10^3/uL (4.0-11.0)
[2024-02-10 06:23] LABS: Alanine Aminotransferase 26 U/L (14-59); Albumin Globulin Ratio 0.7; Albumin Level 2.3 g/dL (3.4-5.0); Alkaline Phosphatase 89 U/L (46-116); Anion Gap 15.4; Aspartate Amino Transferase 19 U/L (15-37); BUN Creatinine Ratio 19.3; Bilirubin Total 0.2 mg/dL (0.2-1.0); Calcium 8.2 mg/dL (8.5-10.1); Carbon Dioxide 22.8 mmol/L (21.0-32.0); Chloride 105 mmol/L (98-107); Estimated GFR (African America 42 (>=60 mL/min/1.73m^2); Estimated GFR (Non-African Ame 35 (>=60 mL/min/1.73m^2); Globulin 3.3 g/dL; Glucose 238 mg/dL (74-106); Potassium 4.2 mmol/L (3.5-5.1); Sodium 139 mmol/L (136-145); Total Protein 5.6 g/dL (6.4-8.2)
[2024-02-10 07:30] LABS: Glucometer 250 mg/dL (74-106)
[2024-02-10 07:38] VITALS: BP 120/73; PULSE 74; TEMP 36.6; O2SAT 98
[2024-02-10] MEDS: INSULIN ASPART 300 UNIT/3 ML PEN SUBQ ×2 (08:02→11:36)
[2024-02-10] MEDS: CEPHALEXIN 500 MG CAPSULE PO (08:04)
[2024-02-10] MEDS: NYSTATIN 15 GM POWDER 1 APPLIC TOPICAL (08:04)
[2024-02-10] MEDS: ENSURE HP 237 ML LIQUID PO (08:04)
[2024-02-10] MEDS: PROSTAT 15 GM PROTEIN/100 CAL 30 ML LIQUID PACKET PO (08:04)
[2024-02-10] MEDS: ENOXAPARIN SODIUM 30 MG/0.3 ML SYRINGE SUBQ (08:04)
[2024-02-10] MEDS: PRIMIDONE 50 MG TABLET PO (08:04)
--- NOTE | 2024-02-10 08:23 | P.PN_ITS ---
Progress Note: Subjective Subjective Interval history: Patient reports some pain in her lower extremities this morning. left > right. But she denies any fevers or chills. Appetite has been good. She is needing max assist with transfers. discussed labs are stable and she has remained afebrile. Exam Narrative Exam Narrative: General: Patient is alert, and oriented to person, place and time with normal affect, proper hygiene Skin: both legs with stasis dermatitis, some warmth and erythema from the chronic stasis changes, no signs or drainage or open wounds. This is down both legs, below the knees and extends to top of feet Head: atraumatic, acephalic Eyes: PERRLA, no nystagmus present, conjunctiva clear, no scleral icterus Ears: normal gross auditory acuity Nose: symmetric, no discharge, no maxillary or frontal sinus tenderness Heart: Normal rate and rhythm, no murmurs/rubs/gallops Lungs: no audible wheezes, crackles and normal breath sounds all lung fowler Abdomen: Normal audible bowel sounds, no distension, No palpable masses, no organomegaly, no rebound/guarding/ or rigidity Musculoskeletal: +1 swelling bilateral lower extremities Neuro: CN II-X grossly intact Constitutional Vital Signs, click to edit/add: Last Vital Signs Temp 97.8 F 02/10/24 07:38 Pulse 74 02/10/24 07:38 Resp 18 02/10/24 07:38 BP 120/73 02/10/24 07:38 Pulse Ox 98 02/10/24 07:38 O2 Del Method Room Air 02/10/24 07:38 Progress Note: Objective Labs Labs: Short CBC 02/10/24 Range/Units 05:38 WBC 5.6 (4.0-11.0) 10^3/uL Hgb 9.9 L (12.0-16.0) g/dL Hct 31.0 L (36.0-48.0) % Plt Count 271 (150-450) 10^3/uL BMP 02/10/24 05:38 Sodium 139 Potassium 4.2 Chloride 105 Carbon Dioxide 22.8 BUN 28.0 H Creatinine 1.45 H Glucose 238 H Calcium 8.2 L Liver Function 02/10/24 Range/Units 05:38 Total Bilirubin 0.2 (0.2-1.0) mg/dL AST 19 (15-37) U/L ALT 26 (14-59) U/L Alkaline Phosphatase 89 (46-116) U/L Albumin 2.3 L (3.4-5.0) g/dL Progress Note: A&P Assessment and Plan (1) Cellulitis of right anterior lower leg: Assessment and Plan: continue on keflex. No positive cultures. Continue wound dressings per wound recs. WBC's normal. Continue tylenol and add Ultram for pain. (2) Hypertension: Assessment and Plan: BP has been stable. monitor. Qualifiers: Hypertension type: secondary to endocrine disorders Qualified Code(s): I15.2 - Hypertension secondary to endocrine disorders (3) Diabetes: Assessment and Plan: ha1c 8.2, continue SSI, will need SGL2 at discharge given GFR. Qualifiers: Diabetes mellitus complication detail: with dermatitis Diabetes mellitu s complication status: with skin complications Diabetes mellitus intermediate insulin use: without intermediate use Diabetes mellitus type: type 2 Qualified Code(s): E11.620 - Type 2 diabetes mellitus with diabetic dermatitis (4) Gout: Assessment and Plan: no acute flares. 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 work with pt/ot daily, most likely will need acute rehab. (6) Chronic kidney disease (CKD): Assessment and Plan: renally dose medications, most likely from diabetes. Qualifiers: Chronic kidney disease stage: stage 3 (moderate) Chronic kidney disease stage 3 subtype: stage 3b (GFR 30-44) Qualified Code(s): N18.32 - Chronic kidney disease, stage 3b (7) UTI (urinary tract infection): Assessment and Plan: Urine culture negative, this has been ruled out. Qualifiers: Hematuria presence: without hematuria Urinary tract infection type: acute cystitis Qualified Code(s): N30.00 - Acute cystitis without hematuria (8) Hypomagnesemia: Assessment and Plan: continue oral replacement (9) Bilateral edema of lower extremity: Assessment and Plan: normal proBNP, from diabetic stasis with lipoedema component Plan Patient is a full code Lovenox for DVT prophylaxis Patient most likely will need acute rehab/residential placement and would prefer something close to her home in [place] Urinary Catheter Management Urinary Catheter Management Pure Wick: Cath placed during this visit: yes Urethral indwelling: No Insertion date: 02/07/24 Insertion time: 16:42
--- NOTE | 2024-02-10 09:13 | SWNOTE1 ---
SW had a message to call and speak with daugher about pt going to SNF for short term rehab. SW called and spoke to daughter, Jen. Jen has voiced that she does not want her to go anywhere near [facility]. They had a bad experience and do not want her to be at [facility] and would like to avoid the [facility]. She did ask about facilities in [place]. SW let her know there is [facility]. Jen asked if SW spoke to pt yet? SW has not. Jen stated that pt is alert and oriented and would likely want SW to call her while SW is in room. SW to go to pt's room and speak with her about rehab.
--- NOTE | 2024-02-10 09:30 | CM.NOTE ---
Rounds made with Dr. Lopez, pt wishes are to discharge to skilled facility. SS updated and will speak with pt.
--- NOTE | 2024-02-10 10:05 | SWNOTE1 ---
SW met with pt to discuss dc needs. SW and pt spoke about rehab for a short time at a SNF. Pt then spoke about [facility] and her hip surgery and something happening with her sciatic nerve. SW did express that if she went to SNF in [place], in an emergency situation they would transport her to [facility]. Pt would like to call her daughter. SW did let her know that SW did call her daughter prior to coming in room. SW and pt called and spoke with Jen. SW did review how Medicare works and we spoke about facilities. SW did review list from Medicare.gov. Pt and daughter are alright with [facility] or [facility], whoever has openings. SW has message out to [facility] and [facility].
--- NOTE | 2024-02-10 10:09 | SWNOTE1 ---
Nila at [facility] reached back out and they do have an opening for today. Referral sent to [facility]. Referral included face sheet, ED note, H&P, provider notes, case management report, wound consult, nursing notes, diagnostic imaging, med list, and PT note from 02/08/24.
--- NOTE | 2024-02-10 10:13 | SWNOTE1 ---
SW received a message back from Rowan at [facility] and they do not have a bed opening until possibly tomorrow.
--- NOTE | 2024-02-10 10:29 | REH.PTDLY ---
Physical Therapy Daily Note PT Daily Note/Assess Start: 02/10/24 10:20 Freq: Status: Active Protocol: Document 02/10/24 10:20 ADRIANA (Rec: 02/10/24 10:28 ADRIANA [id number]) Physical Therapy Daily Note/Assessment Time In 09:50 Time Out 10:08 Subjective Pt in bed upon arrival, no pain at rest. Pain increases in L LE when moving. Legs swollen at this time and pt stating they are usually not like this. Therapeutic Exercise Minutes (minutes) 4 Therapeutic Exercise Units 0 Therapeutic Exercise Treatment Instructed in seated exs in chair 8-10x ea. Pt requires AA with exs due to weakness and limited ROM, needing assist more so with L compared to R. Therapeutic Activity Minutes (minutes) 10 Therapeutic Activity Units 1 Therapeutic Activity Comments Max A x2 with supine to sit transfers. Pt sits bedside being able to hold posture with good seated balance. Cues with sit to stand transfers, Max A x2. Once standing several cues for weight shifting and stepping to the L towards chair, pt is unable to advance L LE on her own. With assist from ORTHO NURSE, L foot is slid to take a step to chair. Chair brought right next to bedside to perform stand pivot transfer as pt struggles to take steps. Cues for sit to stand out of chair with pt using arm rests, Max A . With cushion under feet so her feet are not dangling in the air, cues for pt to scoot herself back in chair. Several verbal and tactile cues needed with pt gaining little ground doing so on her own. Total Therapy Minutes 14 Total Physical Therapy Units 1 Daily Note Summary Pt requires Max A x2 with all transfers today. Pt will need to go to rehab upon DC as she is unable to care for herself at this time. Prior to admission, pt reports she was ambulating with RW.
--- NOTE | 2024-02-10 10:40 | SWNOTE1 ---
[facility] has accepted pt and they can take her today. SW asked if they had transport available, waiting to hear back.
--- NOTE | 2024-02-10 10:52 | SWNOTE1 ---
JORGE completed [facility] online. [facility] does not have transport available. SW to check with nursing on transportation.
--- NOTE | 2024-02-10 10:55 | CM.NOTE ---
Important Message From Medicare discussed with pt, pt verbalizes understanding and signs paper. Original given to pt and copy placed on pt's chart.
[2024-02-10 11:03] LABS: Glucometer 204 mg/dL (74-106)
--- NOTE | 2024-02-10 11:07 | PM.DS1 ---
DS: Providers Provider Date of admission: 02/07/24 14:55 Primary care physician: JEN CLAUDIO Admitting clinician: Vu Klein Consults: 02/07/24 11:14 Consult to Wound Care Routine Consulting Provider: Luis Juarez Reason for consultation: leg swelling 02/07/24 17:28 Consult to Pharmacy Routine Consulting Provider: Reason for consultation: Please [place] me when Med Rec is Updated Has provider been notified: No Occupational Therapy Eval and Treat Routine Reason for consultation: Only if needed for Rehab Has provider been notified: No Physical Therapy Eval and Treat Routine Reason for consultation: Eval and Treat Has provider been notified: No Discharging clinician: Sofi Lopez DS: Diagnosis Discharge Diagnosis (1) Cellulitis of right anterior lower leg: (2) Bilateral edema of lower extremity: DS: Summary Hospital Course Hospital Course: please see progress note dated 02/09/17, I have placed patient on Januvia as outpatient at 50mg daily. She will be discharged today [facility]. Status at Discharge Functional status at discharge: uses cane/walker Overall status at discharge: patient is not back to baseline Time Spent with Patient Time attestation: Total time spent providing and/or coordinating discharge services: Time spent: greater than 30 minutes Exam Narrative Exam Narrative: no changes to discharge exam from progress note dated 02/10/24 Constitutional Vital Signs, click to edit/add: Last Vital Signs Temp 97.8 F 02/10/24 07:38 Pulse 74 02/10/24 07:38 Resp 18 02/10/24 07:38 BP 120/73 02/10/24 07:38 Pulse Ox 98 02/10/24 07:38 O2 Del Method Room Air 02/10/24 07:38 DS: Data Data Completed and Pending Labs on day of discharge: Labs from last 24 hours 02/10/24 02/10/24 02/10/24 11:02 07:27 05:38 WBC 5.6 RBC 3.29 L Hgb 9.9 L Hct 31.0 L MCV 94.2 MCH 30.1 MCHC 31.9 RDW 12.4 Plt Count 271 MPV 11.2 Neut % (Auto) 69.8 Lymph % (Auto) 18.9 L [place] % (Auto) 10.6 Eos % (Auto) 0.0 L Baso % (Auto) 0.5 Neut # (Auto) 3.9 Lymph # (Auto) 1.1 L [place] # (Auto) 0.6 Eos # (Auto) 0.0 Baso # (Auto) 0.0 Abs Immat Gran (auto) 0.01 Imm/Tot Granulo (auto) 0.2 Sodium 139 Potassium 4.2 Chloride 105 Carbon Dioxide 22.8 Anion Gap 15.4 BUN 28.0 H Creatinine 1.45 H Est GFR ( Amer) 42 L Est GFR (Non-Af Amer) 35 L BUN/Creatinine Ratio 19.3 Glucose 238 H Calcium 8.2 L Total Bilirubin 0.2 AST 19 ALT 26 Alkaline Phosphatase 89 Total Protein 5.6 L Albumin 2.3 L Globulin 3.3 Albumin/Globulin Ratio 0.7 POC Glucose 204 H 250 H 02/09/24 02/09/24 02/09/24 20:05 17:09 11:44 WBC RBC Hgb Hct MCV MCH MCHC RDW Plt Count MPV Neut % (Auto) Lymph % (Auto) [place] % (Auto) Eos % (Auto) Baso % (Auto) Neut # (Auto) Lymph # (Auto) [place] # (Auto) Eos # (Auto) Baso # (Auto) Abs Immat Gran (auto) Imm/Tot Granulo (auto) Sodium Potassium Chloride Carbon Dioxide Anion Gap BUN Creatinine Est GFR ( Amer) Est GFR (Non-Af Amer) BUN/Creatinine Ratio Glucose Calcium Total Bilirubin AST ALT Alkaline Phosphatase Total Protein Albumin Globulin Albumin/Globulin Ratio POC Glucose 238 H 137 H 263 H Discharge Plan Discharge Disposition: Xfer SNF Condition: Fair Discharge Medications: New acetaminophen 500 mg Tablet 1,000 mg PO Q6H PRN (Reason: Pain Scale 4-6) Qty: 0 0RF magnesium oxide 400 mg (241.3 mg magnesium) Tablet 400 mg PO TID 7 Days Qty: 0 0RF cephalexin 500 mg Capsule 500 mg PO BID 7 Days Qty: 0 0RF nystatin [Nystop] 100,000 unit/gram Powder 1 applic topical BID 7 Days Qty: 0 0RF Ensure Active Protein-Muscle Liquid 1 ea PO BID Qty: 0 0RF Pro-Stat Sugar Free 15 gram- 100 kcal/30 mL Liquid In Packet 1 ea PO BID Qty: 0 0RF primidone 50 mg Tablet 50 mg PO QD Qty: 0 0RF Januvia 50 mg tablet 50 mg PO DAILY Qty: 30 0RF Print Language: Arabic Forms: Portal Instructions Discharge location: To the [facility]
--- NOTE | 2024-02-10 11:25 | SWNOTE1 ---
JORGE spoke to pt and she does not have any family that could take her over to [place] today. JORGE called trips and they will be here between 1:00-1:15. JORGE faxed over dc med rec and dc summary to [facility]. JORGE took packet to the floor and let nursing, [place], pt and pt's daughter of dc time.
[2024-02-10 11:36] VITALS: O2SAT 98
== END 2024-02-10 13:26 | DRG 638 ==
LOC: ER 14:34 → MS 15:09
PROVIDERS: Admitting Provider Family Medicine; Emergency Provider Emergency Medicine; PCP Family Medicine; Visit Provider Family Medicine
DX: E11.628 Type 2 diabetes mellitus with other skin complications (principal); E44.1 Mild protein-calorie malnutrition; L03.115 Cellulitis of right lower limb; N30.00 Acute cystitis without hematuria; L03.116 Cellulitis of left lower limb; M1A.30X0 Chronic gout due to renal impairment, unspecified site, without tophus (tophi); Z91.148 Patient's other noncompliance with medication regimen for other reason; N18.32 Chronic kidney disease, stage 3b; E11.22 Type 2 diabetes mellitus with diabetic chronic kidney disease; E11.620 Type 2 diabetes mellitus with diabetic dermatitis; Z91.128 Patient's intentional underdosing of medication regimen for other reason; I12.9 Hypertensive chronic kidney disease with stage 1 through stage 4 chronic kidney disease, or unspecified chronic kidney disease; E83.42 Hypomagnesemia; R60.0 Localized edema; B37.2 Candidiasis of skin and nail; R53.1 Weakness; R25.1 Tremor, unspecified; I87.2 Venous insufficiency (chronic) (peripheral); D50.9 Iron deficiency anemia, unspecified; Z68.39 Body mass index [BMI] 39.0-39.9, adult; Z96.649 Presence of unspecified artificial hip joint
CPT/HCPCS: 36415; 70450; 71045; 80053; 81001; 82800; 82948; 83036; 83605; 83735; 83880; 84436; 84443; 84484; 85025; 85610; 85652; 87040; 87086; 93005; 93970; 94667; 94668; 94761; 96365; 97162; 97165; 97530; 97535; 99285; J0744; J1650; J2543